=== PATIENT | male | born 1985 | race Caucasian/White ===

== ENCOUNTER 2025-01-16 04:32 | Inpatient (IN) | payer MEDICAID ==
[~2025-01-16] VITALS: Ht 165.1 cm; Wt 75.0 kg
[2025-01-16 04:35] VITALS: O2SAT 99
[2025-01-16] MEDS: HALOPERIDOL LACTATE 5MG/ML VIAL IM ONE (05:33)
[2025-01-16] MEDS: DIPHENHYDRAMINE 50MG/ML VIAL IM ONE (05:33)
[2025-01-16 05:34] LABS: BASOPHILS % 0.1 % (0.0-2.0); EOSINOPHILS % 0.8 % (0.0-5.0); HEMATOCRIT. 48.3 % (42.0-52.0); HEMOGLOBIN. 16.3 g/dL (14.0-18.0); LYMPHOCYTES % 14.3 % (20.0-50.0); MEAN PLATELET VOLUME 9.2 fl (7.4-10.4); MONOCYTES % 6.2 % (2.0-8.0); NEUTROPHILS % 78.6 % (40.0-76.0); PLATELET 286 x1000/uL (130-400); RED BLOOD CELL COUNT 5.52 mill/uL (4.7-6.1); RED CELL DISTRIBUTION WIDTH 12.4 % (11.6-14.6)
[2025-01-16] MEDS: LORAZEPAM 2MG/ML UD SYRINGE IM NR (05:34)
[2025-01-16] MEDS: ONDANSETRON HCL 4MG/2ML INJ IV ONE (05:45)
[2025-01-16] MEDS: SODIUM CHLORIDE 0.9% 1,000 ML IV ONE (05:45)
[2025-01-16 06:01] LABS: CREATININE 1.8 mg/dL (0.6-1.3)
[2025-01-16 06:02] LABS: TROPONIN I HIGH SENSITIVITY 11 ng/L (3.0-53)
[2025-01-16 06:02] LABS: ETHANOL BLOOD < 10 mg/dL (<10); PROTEIN TOTAL 7.8 g/dL (6.0-8.3); UREA NITROGEN BLOOD 15 mg/dL (9-23)
[2025-01-16 06:03] LABS: ASPARTATE AMINOTRANSFERASE 25 IU/L (<34)
[2025-01-16 06:04] LABS: BILIRUBIN DIRECT 0.2 mg/dL (<=3.0); BILIRUBIN TOTAL 0.6 mg/dL (0.1-1.0)
[2025-01-16 07:55] LABS: TROPONIN I HIGH SENSITIVITY 23 ng/L (3.0-53)
[2025-01-16 09:30] VITALS: BP 126/81; PULSE 96; RESP 18; TEMP 36.5848
[2025-01-16 09:38] LABS: BG BASE EXCESS -5.3 mmol/L (-2.0-3.0); BG CARBOXYHEMOGLOBIN 1.3 % (0.5-1.5); BG DEOXYHEMOGLOBIN 1.9 % (0.0-5.0); BG FRACTION INSPIRED OXYGEN 21; BG HCO3 ACT 19.2 mmol/L (21.0-28.0); BG METHEMOGLOBIN 0.3 % (0.5-1.5); BG OXYGEN SATURATION 98.1 % (94.0-98.0); BG OXYHEMOGLOBIN 96.5 % (94.0-98.0); BG PCO2 34.9 mmHg (35.0-48.0); BG PH 7.359 (7.350-7.450); BG PO2 113.2 mmHg (83.0-108.0); BG SAMPLE SITE RIGHT RADIAL; BG TOTAL HEMOGLOBIN 15.0 g/dL (13.5-17.5); BG VENT MODE ROOM AIR
[2025-01-16] MEDS ORDERED: IPRATROPIUM/ALBUTEROL 0.5-3(2.5)MG/3ML NEB HHN PRN (10:15)
[2025-01-16] MEDS ORDERED: DOCUSATE SODIUM 100MG CAPSULE PO PRN (10:15)
[2025-01-16] MEDS ORDERED: CLONIDINE 0.1MG TABLET PO PRN (10:15)
[2025-01-16] MEDS ORDERED: ACETAMINOPHEN 650MG/20.3ML UDC GT PRN (10:15)
[2025-01-16] MEDS ORDERED: ACETAMINOPHEN 325MG TABLET PO PRN (10:15)
[2025-01-16] MEDS ORDERED: ONDANSETRON HCL 4MG/2ML INJ IV PRN (10:15)
[2025-01-16] MEDS ORDERED: ENOXAPARIN 40MG/0.4ML SYR SUBCUT SCH (11:00)
[2025-01-16] MEDS: PANTOPRAZOLE SODIUM 40 MG/VIAL IV SCH (11:54)
[2025-01-16] MEDS: ENOXAPARIN 40MG/0.4ML SYR SUBCUT SCH (11:54)
[2025-01-16] MEDS: SODIUM CHLORIDE 0.9% 1,000 ML IV SCH (11:55)
[2025-01-16 12:00] VITALS: BP 116/82; PULSE 100; RESP 17; TEMP 35.8; O2SAT 97
[2025-01-16 12:32] LABS: PHOSPHORUS 2.6 mg/dL (2.5-4.9)
[2025-01-16 14:53] LABS: HEPATITIS C AB NON REACTIVE (Neg) (Negative)
[2025-01-16 16:00] VITALS: BP 122/85; PULSE 86; RESP 18; TEMP 36.1; O2SAT 99
[2025-01-16 18:09] LABS: CREATININE 1.3 mg/dL (0.6-1.3); TROPONIN I HIGH SENSITIVITY 15 ng/L (3.0-53); UREA NITROGEN BLOOD 16 mg/dL (9-23)
[2025-01-16 20:00] VITALS: BP 125/80; PULSE 91; RESP 18; TEMP 36.7; O2SAT 99
[2025-01-16] MEDS: LAMOTRIGINE 25MG TABLET PO SCH (21:42)
[2025-01-16] MEDS: ARIPIPRAZOLE 5MG TABLET PO SCH (21:42)
[2025-01-17] VITALS: BP 112/72; PULSE 91; RESP 19; TEMP 36.7; O2SAT 98
[2025-01-17 00:50] LABS: TROPONIN I HIGH SENSITIVITY 10 ng/L (3.0-53)
[2025-01-17 04:00] VITALS: BP 130/87; PULSE 82; RESP 19; TEMP 36.3; O2SAT 98
[2025-01-17 07:37] LABS: LDL CHOLESTEROL 103.0 mg/dL (5-100)
[2025-01-17 07:38] LABS: TRIGLYCERIDE 152.0 mg/dL (0-150)
[2025-01-17 08:00] VITALS: BP 121/82; PULSE 76; RESP 18; TEMP 36.1; O2SAT 97
[2025-01-17] MEDS: SERTRALINE HCL 50MG TABLET PO SCH (09:33)
[2025-01-17 12:00] VITALS: BP 130/80; PULSE 77; RESP 18; TEMP 36.3; O2SAT 98
[2025-01-17] MEDS ORDERED: SERT50TA PO ×2 (15:45→18:25)
[2025-01-17] MEDS ORDERED: ABIL5 PO ×2 (15:45→18:25)
[2025-01-17] MEDS ORDERED: LAM25 PO ×2 (15:45→18:25)
[2025-01-17 15:49] LABS: CLARITY URINE CLEAR (CLEAR); COLOR URINE DARK YELLOW (YELLOW); GLUCOSE URINE NEGATIVE (NEGATIVE); KETONES URINE TRACE (NEGATIVE); LEUKOCYTE ESTERASE URINE NEGATIVE (NEGATIVE); NITRITE URINE NEGATIVE (NEGATIVE); OCCULT BLOOD URINE NEGATIVE (NEGATIVE); PH URINE 5.5 (4.5-8.0); PROTEIN URINE TRACE (NEGATIVE); SPECIFIC GRAVITY URINE 1.031 (1.005-1.030); UROBILINOGEN URINE 1.0 E.U./dL (0.2-1.0)
[2025-01-17 16:00] VITALS: BP 115/74; PULSE 81; RESP 18; TEMP 36.3; O2SAT 96
[2025-01-17 16:10] LABS: *AMPHETAMINES SCREEN URINE PRESUMPTIVE POSITIVE (NEGATIVE); *BARBITURATES SCREEN URINE NEGATIVE (NEGATIVE); *BENZODIAZEPINES SCREEN URINE PRESUMPTIVE POSITIVE (NEGATIVE)
[2025-01-17 16:11] LABS: *COCAINE SCREEN URINE NEGATIVE (NEGATIVE); CANNABINOID URINE SCREEN NEGATIVE (NEGATIVE); ECSTASY MDMA SCREEN URINE CONF.TEST INDICATED (NEGATIVE); METHADONE URINE SCREEN NEGATIVE (NEGATIVE); OPIATES URINE SCREEN NEGATIVE (NEGATIVE); PHENCYCLIDINE URINE SCREEN NEGATIVE (NEGATIVE)
[2025-01-17 16:28] LABS: WBC URINE 0-2 /hpf (0-2)
[2025-01-17 16:29] LABS: BACTERIA URINE NONE SEEN; RBC URINE NONE SEEN /hpf (0-2); SQUAMOUS EPITHELIAL CELL URINE RARE /lpf (RARE/1+)
[2025-01-17 16:33] VITALS: BP 115/74; PULSE 81; RESP 18; TEMP 97.4
[2025-01-17] MEDS ORDERED: PROT20 PO (18:25)
== END 2025-01-17 18:06 | disposition home or self-care (01) | DRG 469 ==
LOC: ER 04:32 → EDBD 04:32 → 6WST 08:11 → EDBEDREQ 08:16 → EDBEDREQTM 08:16 → ENRESERV 09:32
PROVIDERS: ADMIT Internal Medicine; ATTEND Internal Medicine
PROC: GZ56ZZZ Individual Psychotherapy, Supportive (ICD-10-PCS; principal; 2025-01-16)
DX: N17.9 Acute kidney failure, unspecified (principal); G93.40 Encephalopathy, unspecified; F19.10 Other psychoactive substance abuse, uncomplicated; E78.5 Hyperlipidemia, unspecified; F41.1 Generalized anxiety disorder; Y92.89 Other specified places as the place of occurrence of the external cause
CPT/HCPCS: 36415; 36600; 71045; 80048; 80061; 80076; 80305; 80307; 80320; 80329; 81003; 82375; 82550; 82805; 83735; 84100; 84443; 84484; 85025; 86705; 87340; 93005; 99285; G0378; J1200; J1630; J1650; J2060; J2405; J2470; J7030; G0480